=== PATIENT | female | born 1980 | race Caucasian/White ===

== ENCOUNTER 2017-02-27 18:11 | Emergency (ER) | payer OTHER ==
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
[2017-02-27] MEDS ORDERED: Ketorolac INJ* 30 MG/ML 1 ML VIAL IV PUSH ONE (19:06)
[2017-02-27] MEDS ORDERED: Ondansetron INJ* 2 MG/ML VIAL IV ONE (19:08)
[2017-02-27 19:43] LABS: Hematocrit 44 % (35-47); Hemoglobin 14.5 g/dl (12.0-16.0); Mean Corpuscular HGB Conc 33 g/dl (31-36); Mean Corpuscular Hemoglobin 30 pg (27-31); Mean Corpuscular Volume 89 fL (80-97); Mean Platelet Volume 8 um3 (7.4-10.4); Red Blood Count 4.91 10^6/ul (4.0-5.4); Red Cell Distribution Width 14 % (10.5-15)
[2017-02-27 19:57] LABS: Albumin 4.5 g/dL (3.2-5.2); BUN/Creatinine Ratio 9.2 (8-20); Calcium 9.6 mg/dL (8.6-10.3); EGFR African American 93.7 (>60); EGFR Non-African American 72.9 (>60); Globulin 3.7 g/dL (2-4); Potassium 3.6 mmol/L (3.5-5.0); Total Bilirubin 0.6 mg/dL (0.2-1.0); Total Protein 8.2 g/dL (6.4-8.9)
[2017-02-27] MEDS ORDERED: Iohexol 300* (CONTRAST) 10 ML SDV IV ONE (20:12)
--- NOTE | 2017-02-27 20:19 | RAD ---
INDICATION: Left ankle pain after falling off a horse COMPARISON: None. TECHNIQUE: 3 views of the left ankle were obtained. FINDINGS: The well corticated bones exhibit normal alignment. Joint spaces appear maintained. No fracture is seen. IMPRESSION: Normal ankle radiograph. If the patient's symptoms persist, follow-up imaging is recommended.
[2017-02-27] MEDS ORDERED: HYDROcodone/ACETAMIN 5-325 MG* 1 TAB PO ONE ×2 (20:45→22:10)
--- NOTE | 2017-02-27 21:04 | RAD ---
INDICATION: Left hip and back pain after falling off a horse COMPARISON: CT abdomen pelvis dated April 01, 2016 TECHNIQUE: Multidetector CT images of the chest, abdomen and pelvis were obtained from the lung apices to the ischial tuberosities following the injection of 100 mL Omnipaque 300. . CHEST: The lungs are clear. There are no large pleural effusions. There is no mediastinal or hilar lymphadenopathy. The heart and major vascular structures are grossly normal in appearance. ABDOMEN \T\ PELVIS: At the right lobe of the liver (image 30) there is a stable 4 mm hypodensity that cannot be characterized further on this CT examination. Liver is otherwise normal in appearance. The spleen, pancreas and adrenal glands are grossly normal in appearance. The gallbladder is normal. The kidneys are normal in appearance without focal mass, calcification or signs of hydronephrosis. On the delayed phase images contrast is symmetrically and promptly excreted. . The small and large bowel are not distended. The appendix . There is no gross retroperitoneal or mesenteric lymphadenopathy. The pelvic viscera is normal in appearance. The abdominal aorta and iliac arteries are normal in course and diameter. No displaced fractures are identified. IMPRESSION: No CT evidence of acute traumatic fracture or solid organ injury.
--- NOTE | 2017-02-27 21:44 | PN ---
Progress Note - Progress Note Date of Service: 02/27/17 Note: patient signed out by Morena PEACOCK pending imaging CT IMPRESSION: ab/chest/pelvis No CT evidence of acute traumatic fracture or solid organ injury. discussed results with patient. will order short aount of pain meidcation for next couple days and told to use RICE and follow up with primary Diagnosis: back pain left ankle pain Condition:Stable Disposition:home
[2017-02-27 22:48] VITALS: BP 138/76
== END 2017-02-27 22:25 | disposition home or self-care (01) ==
LOC: ED 18:11
DX: M25.552 Pain in left hip (principal); M25.572 Pain in left ankle and joints of left foot; R10.9 Unspecified abdominal pain; R11.0 Nausea; M54.9 Dorsalgia, unspecified
CPT/HCPCS: 36415; 71260; 74177; 80053; 85025; 99282; J1885; J2405; Q9967

== ENCOUNTER 2018-10-02 09:55 | Emergency (ER) | payer OTHER ==
--- OUTSIDE RECORDS SUMMARY | 2018-10-02 10:10 | XMS REPORT | Continuity of Care Document ---
:1980 External Reference #:[id number] Author Name Jean-Paul Cm MD Address [address] [place] [address] Care Team Providers Name Role Phone [facility] Care Team Information Water Operator Unavailable [facility] Primary Care Physician Unavailable Payers Date Identification Numbers Payment Provider Subscriber Policy Number: [id number] [facility] Claims Admin Berta Goldberg Group Name: Student Insurance [address] PayID: [id number] [place] [address] Advance Directives Description No Information Available Problems Date Description Provider Status Onset: 09/20/2018 Other specified disorders of Eustachian Jean-Paul Cm MD Active tube, bilateral Onset: 09/20/2018 Bilateral chronic serous otitis Jean-Paul Cm MD Active Family History Date Family Member(s) Observation Comments General Allergies General Asthma Mother Asthma Mother Allergies Social History Type Date Description Comments Sex Unknown Occupation Student Tobacco Use Start: Unknown Never Smoked Cigarettes Tobacco Use Start: Unknown Never Smoked Cigars Tobacco Use Start: Unknown Never Smoked A Pipe Smokeless Tobacco Never Used Smokeless Tobacco ETOH Use Currently rarely consumes alcohol Allergies, Adverse Reactions, Alerts Date Description Reaction Status Severity Comments 09/20/2018 Aspirin Active 09/20/2018 Latex Active 09/20/2018 NKDA Inactive Medications Description No Active Medications Immunizations Description No Information Available Vital Signs Date Vital Result Comment 09/20/2018 2:05pm Weight 177.00 lb Weight 80.287 kg Height 66 inches 5'6" Height in cm's 167.6 cm BMI (Body Mass Index) 28.6 kg/m2 Results Description No Information Available Procedures Date Code Description Status 09/20/2018 48551 Tympanometry Completed 09/20/2018 76155 Comprehensive Audiogram Completed Encounters Type Date Location Provider Dx Diagnosis Office Visit 09/20/2018 [facility],After Jean-Paul Cm H69.83 Other specified 2:00p 07/24/07 disorders of Eustachian tube, bilateral H65.23 Chronic serous otitis media, bilateral Plan of Treatment 09/20/2018 - Jean-Paul Cm MDH69.83 Other specified disorders of Eustachian tube, bilateralComments:Patient with symptoms of recurring otitis media but 1 or 2 bouts a year no evidence on tympanogram or audiogram of any long-term sequelae. I at this point suggest continued medical management for acute sinus and acute otitis media.H65.23 Chronic serous otitis media, bilateral
--- NOTE | 2018-10-02 10:39 | ED ---
Abdominal Pain/Female - HPI Summary HPI Summary: Patient is a 38-year-old female presents to the ED with 3 day history of intermittent RLQ pain associated with nausea and 1 episode of vomiting. Denies fevers, sweats, chills. Pain is been rated a 7/10 currently, however 2 days ago was 10/10. Pain began in the umbilicus and moved to the RLQ. No pain to the CVA bilaterally. She endorses early satiety. Denies any urinary symptoms, constipation. However, she endorses diarrhea 3 days ago. None currently. Hx of undiagnosed abdominal issues including possible endometriosis and ovarian cysts. Hx of sterilization. Periods are irregular. Last TVUS approximately 6- 8mos ago and was normal. - History of Current Complaint Chief Complaint: EDAbdPain Stated Complaint: LOWER RIGHT ABD PAIN/NAUSEA PER PT Time Seen by Provider: 10/02/18 10:28 Hx Obtained From: Family/Chaser Apprentice ?: No Onset/Duration: Sudden Onset Timing: Intermittent Episode Lasting Severity Initially: Moderate Severity Currently: Moderate Pain Intensity: 6 Pain Scale Used: 0-10 Numeric Location: Discrete At: RLQ Radiates: No Radiates to: RLQ Character: Cramping Aggravating Factor(s): Nothing Alleviating Factor(s): Nothing Associated Signs and Symptoms: Positive: Negative - Risk Factors Ovarian Torsion Risk Factor: Reproductive Age, Ovarian Cysts/Tumors Allergies/Adverse Reactions: Allergies Allergy/AdvReac Type Severity Reaction Status Date / Time aspirin Allergy GI Upset Verified 10/02/18 10:02 Latex, Natural Rubber Allergy Rash And Verified 10/02/18 10:02 Itching Home Medications: Home Medications Albuterol Sulfate [Ventolin Hfa] 1 puff INH SEE INSTRUCTIONS PRN 10/02/18 [ History Confirmed 10/02/18] Cetirizine* [ZyrTEC 10 MG TAB*] 10 mg PO DAILY 10/02/18 [History Confirmed 10/02] DULoxetine DR CAP* [Cymbalta CAP*] 30 mg PO DAILY 10/02/18 [History Confirmed ] LORazepam [Lorazepam] 0.5 mg PO QID PRN 10/02/18 [History Confirmed 10/02/18] Propranolol TAB* [Inderal TAB*] 40 mg PO BID 10/02/18 [History Confirmed ] Testosterone GEL (NF) [Androgel (NF)] 50 mg TOPICAL DAILY 10/02/18 [History Confirmed 10/02/18] PMH/Surg Hx/FS Hx/Imm Hx Previously Healthy: Yes Endocrine/Hematology History: Denies: Hx Diabetes Cardiovascular History: Denies: Hx Pacemaker/ICD GI History: Reports: Hx Gastroesophageal Reflux Disease, Hx Irritable Bowel, Other GI Disorders - nervous stomach, chronic nausea, stomach ulcers Musculoskeletal History: Reports: Other Musculoskeletal History - fibromyalgia Sensory History: Denies: Hx Hearing Aid Psychiatric History: Denies: Hx Panic Disorder - Surgical History Surgery Procedure, Year, and Place: tubal plugs for surgical sterilization ( [facility]); - Immunization History Date of Tetanus Vaccine: 9 years ago Infectious Disease History: No Infectious Disease History: Denies: Traveled Outside the [place] in Last 30 Days - Family History Known Family History: Positive: Diabetes - Social History Occupation: Employed Full-time Lives: With Family Alcohol Use: Weekly Hx Substance Use: Yes Substance Use Type: Reports: Marijuana Substance Use Comment - Amount & Last Used: Prescribed Hx Tobacco Use: No Smoking Status (MU): Never Smoked Tobacco Review of Systems Constitutional: Negative Negative: Fever, Chills, Fatigue, Skin Diaphoresis Negative: Epistaxis, Dental Pain Negative: Palpitations, Chest Pain Positive: Abdominal Pain - RLQ, Vomiting, Nausea Genitourinary: Negative Positive: no symptoms reported, see HPI Negative: Arthralgia, Myalgia Skin: Negative Neurological: Negative All Other Systems Reviewed And Are Negative: Yes Physical Exam Triage Information Reviewed: Yes Vital Signs On Initial Exam: Initial Vitals Temp Pulse Resp BP Pulse Ox 96.9 F 80 16 136/88 99 10/02/18 09:58 10/02/18 09:58 10/02/18 09:58 10/02/18 09:58 10/02/18 09:58 Vital Signs Reviewed: Yes Appearance: Positive: Well-Appearing, Well-Nourished Skin: Positive: Warm, Skin Color Reflects Adequate Perfusion Head/Face: Positive: Normal Head/Face Inspection Eyes: Positive: EOMI, MARY JANE, Conjunctiva Clear Neck: Positive: Supple, No Lymphadenopathy Respiratory/Lung Sounds: Positive: Clear to Auscultation, Breath Sounds Present Cardiovascular: Positive: RRR, Pulses are Symmetrical in both Upper and Lower Extremities Abdomen Description: Positive: Nontender, Soft, Other: - No tenderness over McBurney's point, negative Rovsing, negative obturator. Negative: CVA Tenderness (R), CVA Tenderness (L) Bowel Sounds: Positive: Present Musculoskeletal: Positive: Strength/ROM Intact Neurological: Positive: Sensory/Motor Intact, Alert, Oriented to Person Place, Time, Speech Normal Psychiatric: Positive: Affect/Mood Appropriate AVPU Assessment: Alert Diagnostics - Vital Signs Vital Signs Temp Pulse Resp BP Pulse Ox 10/02/18 09:58 96.9 F 80 16 136/88 99 - Laboratory Result Diagrams: 10/02/18 10:47 10/02/18 10:47 Lab Statement: Any lab studies that have been ordered have been reviewed, and results considered in the medical decision making process. Abdominal Pain Fem Course/Dx - Course Course Of Treatment: During the course of treatment, the patient is evaluated for RLQ pain without radiation. She declines any pain medicine at this time. She endorses nausea. CT abdomen and pelvis obtained which shows a normal appendix. Discussed obtaining a ultrasound at this time, however patient declines. She states she will follow-up as an outpatient. She does endorse feeling improved after Zofran was given as well as normal saline. - Diagnoses Differential Diagnosis: Positive: Appendicitis, Ovarian Cyst Provider Diagnoses: Right lower quadrant abdominal pain Discharge - Sign-Out/Discharge Documenting (check all that apply): Patient Departure Patient Received Moderate/Deep Sedation with Procedure: No - Discharge Plan Condition: Stable Disposition: HOME Prescriptions: Ondansetron ODT TAB* [Zofran 4 MG Odt TAB*] 4 mg PO Q6H PRN #12 tab.odt MDD 4 PRN Reason: Nausea Patient Education Materials: Acute Abdominal Pain (ED) Referrals: Cherrie Navarro MD [Medical Doctor] - No Primary Care Phys,NOPCP [Primary Care Provider] - Additional Instructions: Zofran up to 4 hours as needed for nausea Please follow up with Dr. Navarro Return to the ED for worsening pain/symptoms - Billing Disposition and Condition Condition: STABLE Disposition: Home
[2018-10-02 10:54] LABS: ABS Basophils 0.1 10^3/ul (0-0.2); ABS Eosinophils 0.1 10^3/ul (0-0.6); ABS Lymphocytes 2.4 10^3/ul (1.0-4.8); ABS Monocytes 0.4 10^3/ul (0-0.8); ABS Neutrophils 3.8 10^3/ul (1.5-7.7); ABS Nucleated RBC 0 10^3/ul; Eosinophil % 1.9 %; Hematocrit 44 % (35-47); Hemoglobin 14.3 g/dl (12.0-16.0); Lymphocyte % 35.5 %; Mean Corpuscular HGB Conc 33 g/dl (31-36); Mean Corpuscular Hemoglobin 30 pg (27-31); Mean Corpuscular Volume 90 fL (80-97); Mean Platelet Volume 7.4 fL (7.4-10.4); Nucleated Red Blood Cells % 0.2; Platelet Count 273 10^3/ul (150-450); Red Blood Count 4.84 10^6/ul (4.00-5.40); Red Cell Distribution Width 14 % (10.5-15); White Blood Count 6.9 10^3/ul (3.5-10.8)
[2018-10-02 11:22] LABS: HCG Pregnancy 1.11 mIU/mL
[2018-10-02 11:31] LABS: Albumin 4.2 g/dL (3.2-5.2); Albumin/Globulin Ratio 1.4 (1-3); BUN/Creatinine Ratio 11.8 (8-20); C Reactive Protein 9.65 mg/L (<8.01); Calcium 8.8 mg/dL (8.6-10.3); EGFR African American 90.1 (>60); EGFR Non-African American 74.5 (>60); Magnesium 2.1 mg/dL (1.9-2.7); Total Bilirubin 0.4 mg/dL (0.2-1.0); Total Protein 7.2 g/dL (6.4-8.9)
[2018-10-02] MEDS ORDERED: Ondansetron INJ* 2 MG/ML VIAL IV ONE (12:02)
[2018-10-02] MEDS ORDERED: NS 0.9% 1000 ML** 1,000 ML IV ONE (12:02)
[2018-10-02] MEDS ORDERED: Iohexol 300* (CONTRAST) 10 ML SDV IV ONE (12:04)
[2018-10-02 13:20] LABS: Urine Appearance Clear; Urine Bilirubin Negative (Negative); Urine Blood Negative (Negative); Urine Color Straw; Urine Glucose Negative (Negative); Urine Ketones Negative (Negative); Urine Nitrite Negative (Negative); Urine Protein Negative (Negative); Urine Specific Gravity 1.021 (1.010-1.030); Urine Urobilinogen Negative (Negative)
[2018-10-02 13:32] VITALS: BP 125/86
== END 2018-10-02 13:33 | disposition home or self-care (01) ==
LOC: ED 09:55
DX: R10.31 Right lower quadrant pain (principal); R11.2 Nausea with vomiting, unspecified; M79.7 Fibromyalgia; Z88.6 Allergy status to analgesic agent; Z91.040 Latex allergy status
CPT/HCPCS: 36415; 74177; 80053; 81003; 83605; 83690; 83735; 84702; 85025; 86140; 96374; 99282; J2405; Q9967

== ENCOUNTER 2019-01-05 09:13 | Emergency (ER) | payer OTHER ==
[2019-01-05] MEDS ORDERED: NS 0.9% 1000 ML** 1,000 ML IV ONE (09:37)
[2019-01-05] MEDS ORDERED: PROCHLORPERAZINE INJ 5 MG/ML 2 ML VIAL IV PRN (09:38)
[2019-01-05] MEDS ORDERED: PROCHLORPERAZINE INJ 5 MG/ML 2 ML VIAL ONE (09:46)
--- NOTE | 2019-01-05 09:49 | ED ---
GI/ HPI - HPI Summary HPI Summary: The patient is a 38 y/o F presenting to [facility] with a chief complaint of sudden onset nausea and vomiting this morning. She has had five episodes of vomiting with some hematemesis. She states she attempted to alleviated the nausea with louis rodolfo and 8 mg zofran at 0600 and then again at 0900 to no relief. She additionally c/of diffuse cramping abd pain that has mostly resolved since onset. The pain is currently rated 4/10 in severity. She denies fever. She also reports that she has been having diarrhea with a mucous consistency over the last month; she has a scheduled colonoscopy on 01/17/19 at [facility]. She denies any new foods, recent traveling, or others sick at home. Hx of GERD, IBS, stomach ulcers. Surgical hx of tubal plugs for sterilization. Nonsmoker, occasional EtOH, marijuana use. - History of Current Complaint Chief Complaint: EDNauseaVomitDiarrh Time Seen by Provider: 01/05/19 09:37 Stated Complaint: VOMITING BLOOD PER PT Hx Obtained From: Patient Onset/Duration: Started Hours Ago, Still Present Timing: Lasting Hours Severity: Moderate Current Severity: Moderate Pain Intensity: 4 Location of Pain: Diffuse Pain Characteristics: Cramping Associated Signs and Symptoms: Positive: Hematemesis, Nausea, Vomiting, Diarrhea - mucous consistency. Negative: Fever Aggravating Factor(s): Food Alleviating Factor(s): Nothing - louis rodolfo and Zofran to no relief - Allergy/Home Medications Allergies/Adverse Reactions: Allergies Allergy/AdvReac Type Severity Reaction Status Date / Time aspirin Allergy GI Upset Verified 01/05/19 09:18 Latex, Natural Rubber Allergy Rash And Verified 01/05/19 09:18 Itching Home Medications: Home Medications Glycopyrrolate 2 mg PO SEE INSTRUCTIONS PRN 01/05/19 [History Confirmed 01/05/19 ] Levonorgestrel-Ethin Estradiol [Levonor-Eth Estrad 0.15-0.03] 1 tab PO DAILY [History Confirmed 01/05/19] SUMAtriptan TAB* [Imitrex TAB*] 50 mg PO SEE INSTRUCTIONS PRN 01/05/19 [History Confirmed 01/05/19] tiZANidine TAB* [Zanaflex TAB*] 2 mg PO SEE INSTRUCTIONS PRN 01/05/19 [History Confirmed 01/05/19] PMH/Surg Hx/FS Hx/Imm Hx Endocrine/Hematology History: Denies: Hx Diabetes Cardiovascular History: Denies: Hx Pacemaker/ICD GI History: Reports: Hx Gastroesophageal Reflux Disease, Hx Irritable Bowel, Other GI Disorders - nervous stomach, chronic nausea, stomach ulcers Musculoskeletal History: Reports: Other Musculoskeletal History - fibromyalgia Sensory History: Denies: Hx Hearing Aid Psychiatric History: Denies: Hx Panic Disorder - Surgical History Surgery Procedure, Year, and Place: tubal plugs for surgical sterilization ( [facility]); - Immunization History Date of Tetanus Vaccine: 9 years ago Infectious Disease History: No Infectious Disease History: Denies: Traveled Outside the [place] in Last 30 Days - Family History Known Family History: Positive: Diabetes - Social History Alcohol Use: Occasionally Hx Substance Use: Yes Substance Use Type: Reports: Marijuana Substance Use Comment - Amount & Last Used: Prescribed Hx Tobacco Use: No Smoking Status (MU): Never Smoked Tobacco Do You Chew or Dip Tobacco: No Have You Chewed or Dipped Tobacco in the LAST YEAR: No Have You Smoked in the Last Year: No Review of Systems Negative: Fever Positive: Abdominal Pain - diffuse (mostly resolved), Vomiting - with blood, Diarrhea - mucousy, Nausea All Other Systems Reviewed And Are Negative: Yes Physical Exam - Summary Physical Exam Summary: VITAL SIGNS: Reviewed. GENERAL: Patient is a well-developed and nourished female who is lying comfortable in the stretcher. Patient is not in any acute respiratory distress. HEAD AND FACE: Normocephalic and atraumatic. EYES: PERRLA, EOMI x 2, No injected conjunctiva. EARS: Hearing grossly intact. Ear canals and tympanic membranes are WNL. MOUTH: Oral mucosa dry. Oropharynx otherwise within normal limits. NECK: Supple, trachea is midline, no adenopathy, no JVD. CHEST: Symmetric, no tenderness at palpation LUNGS: Clear to auscultation bilaterally. No wheezing or crackles. CVS: RRR, S1 and S2 present, no murmurs or gallops appreciated. ABDOMEN: Soft, mild diffuse abd discomfort. No signs of distention. Positive bowel sounds. No rebound no guarding, and no masses palpated. No abdominal bruit or pulsations. EXTREMITIES: FROM in all major joints, no edema, no cyanosis or clubbing. NEURO: Alert and oriented x 3. No acute neurological deficits. Speech is normal. SKIN: Dry and warm. Triage Information Reviewed: Yes Vital Signs On Initial Exam: Initial Vitals Temp Pulse Resp BP Pulse Ox 97.3 F 91 18 155/118 100 01/05/19 09:15 01/05/19 09:15 01/05/19 09:15 01/05/19 09:15 01/05/19 09:15 Vital Signs Reviewed: Yes Diagnostics - Vital Signs Vital Signs Temp Pulse Resp BP Pulse Ox 01/05/19 09:28 78 143/99 99 01/05/19 09:27 75 01/05/19 09:15 97.3 F 91 18 155/118 100 - Laboratory Result Diagrams: 01/05/19 09:50 01/05/19 09:50 Lab Statement: Any lab studies that have been ordered have been reviewed, and results considered in the medical decision making process. - EKG 1119 Cardiac Rate: NL - 88 BPM EKG Rhythm: Sinus Rhythm Summary of EKG Findings: Occasional PVCs. No ST elevations. Re-Evaluation - Re-Evaluation First Eval Re-Evaluation Time: 10:50 Change: Worse Comment: The patient states the Compazine did not help, and she is more nauseous. Second Eval Re-Evaluation Time: 11:10 Comment: The patient states she is feeling heart palpitations so we will order an EKG. Third Eval Re-Evaluation Time: 12:40 Change: Improved Comment: She states she is feeling better. We discussed discharge home. GIGU Course/Dx - Course Assessment/Plan: The patient is a 38 y/o F presenting to [facility] with a chief complaint of sudden onset nausea and vomiting this morning. She has had five episodes of vomiting with some hematemesis. She states she attempted to alleviate the nausea with louis rodolfo and 8 mg zofran at 0600 and then again at 0900 to no relief. She additionally c/of diffuse cramping abd pain that has mostly resolved since onset. The pain is currently rated 4/10 in severity. She denies fever. She also reports that she has been having diarrhea with a mucous consistency over the last month; she has a scheduled colonoscopy on 01/17/19 at [facility]. She denies any new foods, recent travel, or others sick at home. Hx of GERD, IBS, stomach ulcers. Surgical hx of tubal plugs for sterilization. Nonsmoker, occasional EtOH, marijuana use. Blood test results without any significant abnormality except for carbon dioxide of 19, anion gap of 12, glucose of 103, and CRP of 10.16. In the ED course, the patient was given IV fluids, Compazine for nausea and vomiting, Reglan and Benadryl. Patient reported palpitations without any chest pain. EKG shows some normal sinus rhythm with occasional PVCs. After these medications, the patients symptoms improved. The patient is able to tolerate by mouth. She does not have nausea or vomiting at this point. Therefore, the patient will be discharged home with follow-up with primary care physician, and she was recommended to keep her appointments to see GI on January 17. Patient understands and agrees. I discussed all the findings and test results with the patient. Patient was instructed to return to the emergency room immediately if any of the symptoms return worsens. Plan of care was discussed with the patient and understands and agrees. All questions were answered at patient satisfaction. There were no further complaints or concerns. Lung exam before discharge: CTA B/L. Good air exchange. No wheezing or crackles heard. CVS: S1 and S2 present. No murmurs appreciated. Patient is alert and oriented x 3. Patient is hemodynamically stable. - Diagnoses Provider Diagnoses: Nausea & vomiting, Diarrhea, PVCs (premature ventricular contractions) Discharge - Sign-Out/Discharge Documenting (check all that apply): Patient Departure - Patient will be discharged home. Patient Received Moderate/Deep Sedation with Procedure: No - Discharge Plan Condition: Stable Disposition: HOME Prescriptions: Prochlorperazine TAB* [Compazine Tab*] 10 mg PO Q8H PRN #10 tab PRN Reason: Vomiting Patient Education Materials: Acute Nausea and Vomiting (ED) Referrals: [facility] PHYSICIAN REFERRAL [Outside] - 3 Days Additional Instructions: Please take medications as prescribed. FOLLOW UP WITH YOUR PRIMARY CARE PROVIDER IN 2-3 DAYS. RETURN TO THE EMERGENCY DEPARTMENT FOR ANY NEW OR WORSENING SYMPTOMS. - Billing Disposition and Condition Condition: STABLE Disposition: Home - Attestation Statements Document Initiated by Scribe: Yes Documenting Scribe: Carol Evans Provider For Whom Scribe is Documenting (Include Credential): Dr. Lj Christianson MD Scribe Attestation: Carol Carter, riced for Dr. Lj Christianson MD on 01/05/19 at 1243. Scribe Documentation Reviewed: Yes Provider Attestation: The documentation as recorded by the scribe, Carol Evans accurately reflects the service I personally performed and the decisions made by me, Dr. Lj Christianson MD Status of Scribe Document: Ready
[2019-01-05 09:58] LABS: ABS Eosinophils 0.1 10^3/ul (0-0.6); ABS Lymphocytes 1.5 10^3/ul (1.0-4.8); ABS Monocytes 0.3 10^3/ul (0-0.8); ABS Neutrophils 4.3 10^3/ul (1.5-7.7); Eosinophil % 1.7 %; Hematocrit 46 % (35-47); Hemoglobin 15.2 g/dL (12.0-16.0); Lymphocyte % 23.9 %; Mean Corpuscular HGB Conc 33 g/dL (31-36); Mean Corpuscular Hemoglobin 29 pg (27-31); Mean Corpuscular Volume 88 fL (80-97); Mean Platelet Volume 7.9 fL (7.4-10.4); Nucleated Red Blood Cells % 0.1; Platelet Count 278 10^3/uL (150-450); Red Blood Count 5.17 10^6 /uL (3.70-4.87); Red Cell Distribution Width 13 % (10-15); White Blood Count 6.3 10^3/uL (3.5-10.8)
[2019-01-05 10:20] LABS: C Reactive Protein 10.16 mg/L (<8.01)
[2019-01-05 10:28] LABS: HCG Pregnancy < 0.60 mIU/mL
[2019-01-05] MEDS: Metoclopramide IV* 5 MG/ML 2 ML VIAL IV ONE ×2 (11:22→12:19)
[2019-01-05] MEDS: diPHENhydraMINE IV* 50 MG/ML 1 ml VIAL (BENADRYL) IV ONE ×2 (11:22→12:19)
[2019-01-05 11:42] LABS: ALT 29 U/L (7-52); AST 24 U/L (13-39); Albumin 4.5 g/dL (3.2-5.2); Albumin/Globulin Ratio 1.3 (1-3); Alkaline Phosphatase 39 U/L (34-104); Anion Gap 12 mmol/L (2-11); Blood Urea Nitrogen 8 mg/dL (6-24); CO2 Carbon Dioxide 19 mmol/L (22-32); Calcium 9.5 mg/dL (8.6-10.3); Chloride 107 mmol/L (101-111); EGFR African American 96.6 (>60); EGFR Non-African American 79.9 (>60); Globulin 3.5 g/dL (2-4); Glucose 103 mg/dL (70-100); Potassium 3.7 mmol/L (3.5-5.0); Sodium 138 mmol/L (135-145)
[2019-01-05 11:51] LABS: Magnesium 2.1 mg/dL (1.9-2.7)
[2019-01-05 12:29] LABS: Urine Appearance Clear; Urine Bilirubin Negative (Negative); Urine Blood Negative (Negative); Urine Color Yellow; Urine Glucose 1+(50 mg/dL) (Negative); Urine Ketones 1+ (Negative); Urine Nitrite Negative (Negative); Urine Protein Negative (Negative); Urine Specific Gravity 1.013 (1.010-1.030); Urine Urobilinogen Negative (Negative)
[2019-01-05 13:01] VITALS: BP 138/91
== END 2019-01-05 13:01 | disposition home or self-care (01) ==
LOC: ED 09:13
DX: R11.2 Nausea with vomiting, unspecified (principal); R19.7 Diarrhea, unspecified; I49.3 Ventricular premature depolarization; R10.84 Generalized abdominal pain; Z88.6 Allergy status to analgesic agent; Z91.040 Latex allergy status
CPT/HCPCS: 36415; 80053; 81003; 83605; 83690; 83735; 84702; 85025; 86140; 86850; 86900; 86901; 93005; 96361; 96374; 96375; 99283; J0780; J1200; J2765

== ENCOUNTER 2019-11-20 20:53 | Emergency (ER) | payer BC ==
[2019-11-20 22:09] LABS: ABS Basophils 0.1 10^3/ul (0-0.2); ABS Eosinophils 0.2 10^3/ul (0-0.6); ABS Lymphocytes 3.2 10^3/ul (1.0-4.8); ABS Monocytes 0.5 10^3/ul (0-0.8); Eosinophil % 1.9 %; Hematocrit 45 % (35-47); Hemoglobin 14.7 g/dL (12.0-16.0); Lymphocyte % 36.8 %; Mean Corpuscular HGB Conc 33 g/dL (31-36); Mean Corpuscular Hemoglobin 30 pg (27-31); Mean Corpuscular Volume 90 fL (80-97); Mean Platelet Volume 7.8 fL (7.4-10.4); Nucleated Red Blood Cells % 0.1; Platelet Count 306 10^3/uL (150-450); Red Blood Count 4.95 10^6 /uL (3.70-4.87); Red Cell Distribution Width 14 % (10-15); White Blood Count 8.8 10^3/uL (3.5-10.8)
[2019-11-20 22:17] LABS: INR 0.98 (0.82-1.09)
[2019-11-20 22:25] LABS: Albumin 4.3 g/dL (3.2-5.2); Albumin/Globulin Ratio 1.2 (1-3); Calcium 9.8 mg/dL (8.6-10.3); EGFR African American 74.3 (>60); EGFR Non-African American 61.4 (>60); Globulin 3.6 g/dL (2-4); Magnesium 2.1 mg/dL (1.9-2.7); Potassium 3.6 mmol/L (3.5-5.0); Total Bilirubin 0.3 mg/dL (0.2-1.0); Total Protein 7.9 g/dL (6.4-8.9)
[2019-11-21 00:49] VITALS: BP 130/87
== END 2019-11-21 00:49 | disposition home or self-care (01) ==
LOC: ED 20:53